=== PATIENT | male | born 2000 | race Caucasian/White ===

== ENCOUNTER 2020-03-08 08:11 | Emergency (ER) | payer BC ==
[~2020-03-08] VITALS: Ht 162.6 cm; Wt 54.5 kg
[2020-03-08 08:13] VITALS: BP 126/70
== END 2020-03-08 09:09 | disposition home or self-care (01) ==
LOC: ER 08:12
DX: S01.112A Laceration without foreign body of left eyelid and periocular area, initial encounter (principal); W22.8XXA Striking against or struck by other objects, initial encounter; Y93.89 Activity, other specified; Y92.89 Other specified places as the place of occurrence of the external cause; Y99.8 Other external cause status
CPT/HCPCS: 99281